=== PATIENT | female | born 1990 | race Asian ===

== ENCOUNTER 2020-10-01 04:29 | Inpatient (IN) ==
[2020-10-01] MEDS ORDERED: LACTATED RINGER'S 1,000 ML IV PRN (05:04)
[2020-10-01] MEDS ORDERED: PENICILLIN G POTASSIUM 3 MU in DEXTROSE 5% 100 ML IV PRN (05:04)
[2020-10-01] MEDS ORDERED: OXYTOCIN 30 UNITS/500 ML BAG IV PRN ×2 (05:04→08:55)
[2020-10-01] MEDS ORDERED: PENICILLIN G POTASSIUM 6 MU in DEXTROSE 5% 250 ML IV STA (05:04)
--- NOTE | 2020-10-01 05:09 | History & Physical Report ---
Date of Service October 01, 2020 Assessment & Plan (1) Supervision of normal first : Plan: Admit to L&D for labor. EFM/[place]. Pt would like to do this as naturally as possible, hoping to avoid epidural. Pen G for GBS+ EDIT: Has changed her mind. After SROM, patient is requesting epidural. History of Present Illness Chief Complaint: contractions Primary Care Provider: NO PCP 30yo @ 39 05/16, presents with regular ctx. No vaginal bleeding, leaking fluid. + movment. GBS+ Allergies Allergy/AdvReac Type Severity Reaction Status Date / Time No Known Allergies Allergy Verified 09/24/20 14:06 Home Medications Medication Instructions Recorded Confirmed Type prenat.vits,rhonda,[id number] 1 tab PO DAILY 08/10/20 10/01/20 History calcium carbonate [Calcium 500] 1 tab PO DAILY 08/13/20 09/24/20 History Patient History Medical History Varicella vaccination Surgical History No history of previous surgery Family History (Updated 08/13/20 @ 09:56 by Franca Sharp) Grandfather (Maternal) Colorectal cancer Denies family history of Ovarian cancer Breast cancer Social History (Updated 08/13/20 @ 09:58 by Franca Sharp) Smoking Status: Never smoker Hx Alcohol Use: No Hx Substance Use: No Preferred Language: Indonesian Communication Ability: Effective Beliefs That Will Affect Care: None marital status: marital status details: Ishan Ulloa (29) [phone] Current Living Situation: Spouse Current Living Situation Comment: mom and sister also lives with her current occupational status: employed current occupation: self employed-PT Feels Safe at Home: Yes Safety Concerns: Feels Safe At This Time Assistive Devices: Glasses Review of Systems All systems reviewed & are unremarkable except as noted in HPI & below Physical Exam Constitutional: WD/WN, vitals as above Respiratory: normal respiratory effort, lungs clear to auscultation no respiratory distress Cardiovascular: Rate/Rhythm: regular rate and regular rhythm Gastrointestinal (Abdomen): Inspection/Auscultation: abdomen normal to inspection Percussion/Palpation: abdomen soft; abdomen nontender Gravid. No s/s chorio or abruption. Skin: no rashes, warm and dry Psychiatric: A+Ox3, euthymic affect Results & Data ([facility]) Vital Signs (Past 12 Hours) Vital Signs Temp Pulse Resp BP 10/01/20 04:41 66 114/75 10/01/20 04:40 36.5 C 16 Monitoring External Monitor Cat 1 Tocodynamometer Q 3-4 Coding Level of Care Code None Diagnoses Supervision of normal first Z34.00
[2020-10-01 06:04] LABS: Hematocrit (blood only) 35.2 % (37-47); Hemoglobin 11.5 g/dL (12.0-16.0); Mean Corpuscular Hemoglobin 27.1 pg (25-34); Mean Corpuscular Volume 82.8 fL (80-100); Mean Platelet Volume 10.6 fL (7.4-10.4); Platelet Count 134 K/uL (130-400); RDW Coefficient of Variation 14.1 % (11.5-14.5); RDW Standard Deviation 42.4 fL (36.4-46.3); Red Blood Count 4.25 M/uL (4.2-5.4); White Blood Count 9.05 K/uL (4.8-10.8)
[2020-10-01 06:14] LABS: Mean Corpuscular Hgb Conc 32.7 g/dL (32-36)
[2020-10-01] MEDS ORDERED: ePHEDrine sulfate 50 MG/ML AMP ONE (07:40)
[2020-10-01] MEDS ORDERED: SODIUM CHLORIDE 0.9% INJ 10 ML VIAL ONE (07:40)
[2020-10-01] MEDS ORDERED: BUPIVACAINE 0.25% 30 ML VIAL ONE (07:40)
[2020-10-01] MEDS ORDERED: fentaNYL 2MCG/ML ROPIVACAINE 1.25MG/ML 100 ML BAG EPI ONE (07:41)
[2020-10-01] MEDS ORDERED: fentaNYL citrate 100 MCG/2 ML VIAL ONE (07:41)
--- NOTE | 2020-10-01 08:01 | Anesthesiology Consultation ---
Date of Service October 01, 2020 Assessment & Plan (1) Encounter for pre-operative examination: Chart Review Chart Review: Acceptable Risk for Surgery History Height/Weight Height: 5 ft 3 in Weight: 66.224 kg Allergies Allergy/AdvReac Type Severity Reaction Status Date / Time No Known Allergies Allergy Verified 09/24/20 14:06 Medications Home Medications Medication Instructions Recorded Confirmed Last Taken prenat.vits,rhonda,oav-ysbr-dehgs 1 tab PO DAILY 08/10/20 10/01/20 09/30/20 calcium carbonate [Calcium 500] 1 tab PO DAILY 08/13/20 09/24/20 09/30/20 Active Medications Generic Name Dose Route Start Last Admin Trade Name Freq PRN Reason Stop Dose Admin Lactated Ringer's 1,000 mls @ 125 mls/hr 10/01/20 05:04 10/01/20 07:47 Lr IV 10/03/20 05:03 999 mls/hr .Q8H PRN Infusion L&D Protocol Protocol Past Medical History Medical History Varicella vaccination Past Family History Family History Grandfather (Maternal) Colorectal cancer Denies family history of Ovarian cancer Breast cancer Past Surgical History Surgical History No history of previous surgery Social History Smoking Status: Never smoker Hx Alcohol Use: No Hx Substance Use: No Physical Exam Vital Signs Last Vital Signs Temp 36.5 C 10/01/20 04:40 Pulse 64 10/01/20 07:56 Resp 16 10/01/20 04:40 BP 122/76 10/01/20 07:52 Pulse Ox 98 10/01/20 07:56 Testing Laboratory Results 10/01/20 05:58
--- NOTE | 2020-10-01 08:05 | Labor Progress Brief Note ---
Date of Service October 01, 2020 Subjective FHT Cat 1 [place] Q 2-3 SVE complete/+1 station Feeling urge to push. Wants to push rather than wait for epidural. Assessment & Plan Admission and Anticipated Discharge Date Admission Date: October 01, 2020 Results & Data ([facility]) Vital Signs (Past 12 Hours) Vital Signs Temp Pulse Resp BP Pulse Ox 10/01/20 08:01 72 98 10/01/20 07:56 64 98 10/01/20 07:52 65 122/76 10/01/20 07:51 65 98 10/01/20 04:41 66 114/75 10/01/20 04:40 36.5 C 16 Coding Level of Care Code None
[2020-10-01] MEDS ORDERED: LIDOCAINE 1% LOCAL 20 ML VIAL ONE ×2 (08:09→08:18)
--- NOTE | 2020-10-01 08:40 | Delivery Summary ---
Vaginal Delivery Summary Date of Service October 01, 2020 Vaginal Delivery Summary and 1st Degree LAC Vaginal Delivery Summary: Pre-delivery diagnoses: 30yo @ 39 4/7, spontaneous labor, GBS+ Post-delivery diagnoses: same Procedure: spontaneous vaginal delivery, repair of 1st degree perineal laceration Surgeon: Sarah Li DO Complications: none Findings: Viable male . Apgars: 8/9. Weight pending, please see nursery records. Estimated blood loss: 300ml Description of delivery: The patient presented in spontaneous labor, spontaneously ruptured membranes, and progressed to complete without anesthesia. She then began to push. She spontaneously vaginally delivered a viable from the cephalic presentation. The head delivered in KVNG position. The anterior shoulder delivered, followed by the posterior shoulder, followed by the body. The baby was placed on mother's abdomen and a spontaneous cry was heard. Delayed cord clamping was employed, and the cord was doubly clamped and cut. Cord blood was obtained. The placenta was delivered spontaneously intact with a 3-vessel cord. The uterus and vagina were swept of clots and debris. IV pitocin was given. The uterus became firm. The cervix, vagina, and perineum were inspected and a first degree perineal and a small periclitoral laceration were noted. Lidocaine for local anesthetic. The periclitoral laceration became hemostatic with direct pressure and did not require suture. The 1st degree perineal lac was reapproximated in standard fashion with 3-0 vicryl. Excellent hemostasis was observed. The mother and baby are recovering in stable and good condition in the room. Sponge, needle and instrument counts were correct x 2. Sarah Li DO [facility] Vaginal Delivery Charge Vaginal Delivery Codes: 39608 global code for the antepartum, delivery, and post- Delivery Type Details: and 1st Degree LAC
[2020-10-01] MEDS ORDERED: IBUPROFEN 600 MG TAB PO PRN (08:55)
[2020-10-01] MEDS ORDERED: BENZOCAINE 20% AER SPR 82.5 GM CAN EXT PRN (08:55)
[2020-10-01] MEDS ORDERED: oxyCODONE/ACETAMINOPHEN 5mg/325mg TAB PO PRN (08:55)
[2020-10-01] MEDS ORDERED: SUPERCREAM 0.870% 15 GM JAR EXT PRN (08:55)
[2020-10-01] MEDS ORDERED: bisacodyL 10 MG SUPP PR PRN (08:55)
[2020-10-01] MEDS ORDERED: ACETAMINOPHEN 325 MG TAB PO PRN (08:55)
[2020-10-01] MEDS ORDERED: DIPHTHERIA/TETANUS/PERTUSSIS 0.5 ML SYR/VIAL IM ONE (08:55)
[2020-10-01] MEDS ORDERED: HYDROCORTISONE ACETATE 25 MG SUPP PR PRN (08:55)
[2020-10-01] MEDS: DOCUSATE SODIUM 100 MG CAP PO SCH (19:32)
--- NOTE | 2020-10-02 05:36 | Obstetrical Progress Note ---
Date of Service <Joaquim Otero - Last Filed: 10/02/20 07:00> October 02, 2020 Assessment & Plan <Joaquim Otero - Last Filed: 10/02/20 07:00> (1) Encounter for care and examination after delivery: PPD1 - A+, GBS+, RI - Vitals WNL - Encouraged . - Discussed discharge with patient. Continue to monitor patient until ready for discharge. <Courtney Gore MD - Last Filed: 10/02/20 07:48> (1) Encounter for care and examination after delivery: Subjective <Joaquim Otero - Last Filed: 10/02/20 07:00> Ambulation: ambulating normally Voiding: no voiding problems Passing Gas:: Yes Diet Tolerance:: regular diet Lochia:: Moderate Feeding Type:: breast feeding Current Pain Level(1-10): 2 (Mostly cramping. ) Review of Systems Denies fever, chills, sweats Denies shortness of breath, difficulty breathing, chest pain, palpitations, chest pressure. Denies breast pain. Denies dysuria. Denies headache or changes in vision Physical Exam <Joaquim Otero - Last Filed: 10/02/20 07:00> General: Alert, oriented. No acute distress. Cardiac: Regular rate and rhythm, no murmurs/rubs/gallops. Respiratory: Clear to auscultation bilaterally a/p, no wheezes/rales/rhonchi. No increased work of breathing. Symmetrical chest rise. No respiratory distress. Abdomen: Soft, nontender, nondistended. Bowel sounds present. Uterus: Uterine fundus firm, palpable at umbilicus. Lower Extremities: No lower extremity edema or swelling. No deep calf pain. Chrissy's negative bilaterally Results & Data ([facility]) <Joauqim Summerskatieron - Last Filed: 10/02/20 07:00> Vital Signs (Past 12 Hours) Vital Signs Temp Pulse Resp BP Pulse Ox 10/02/20 04:20 36.6 C 72 16 103/68 98 10/01/20 23:00 36.4 C L 69 16 97/60 L 99 10/01/20 19:24 36.7 C 84 18 102/67 97 <Courtney Gore MD - Last Filed: 10/02/20 07:48> Co-Signing Physician Notes Resident Physician Supervision Note: I interviewed and examined the patient. Discussed with Dr. Otero and agree with findings and plan as documented in the note. Any exceptions or clarifications are listed here: PP1 s/p , doing well. VSS, exam benign and wnl. Continue routine pp care, plan for d/c tomorrow Documented By: Courtney Gore MD Resident Activity Tracking <Joaquim Otero DO - Last Filed: 10/02/20 07:00> Resident Involvement: Resident Care Provided Care Provided: OB Delivery
[2020-10-02] MEDS: PRENATAL VITAMIN 1 TAB PO SCH (08:03)
[2020-10-02] MEDS: DOCUSATE SODIUM 100 MG CAP PO SCH ×2 (08:03→21:14)
[2020-10-02 08:44] LABS: Hematocrit (blood only) 32.4 % (37-47); Hemoglobin 10.3 g/dL (12.0-16.0)
[2020-10-02] MEDS ORDERED: bisacodyL 5 MG TABEC PO SCH (20:00)
--- NOTE | 2020-10-03 06:56 | Obstetrical Progress Note ---
Date of Service <Joaquim Otero DO - Last Filed: 10/03/20 08:03> October 03, 2020 Assessment & Plan <Joaquim Otero DO - Last Filed: 10/03/20 08:03> (1) Encounter for care and examination after delivery: s/p vaginal delivery PPD1 - A+, GBS+, RI - Vitals WNL - Encouraged . - Discussed discharge with patient. Patient will be discharged when baby cleared by pediatrics and she is ready. <Musa Flores MD - Last Filed: 10/03/20 08:10> (1) Encounter for care and examination after delivery: Subjective <Joaquim Otero - Last Filed: 10/03/20 08:03> Ambulation: ambulating normally Voiding: no voiding problems Passing Gas:: Yes Diet Tolerance:: regular diet Lochia:: Small Feeding Type:: breast feeding Current Pain Level(1-10): 0 Review of Systems Denies fever, chills, sweats Denies shortness of breath, difficulty breathing, chest pain, palpitations, chest pressure. Denies breast pain. Denies dysuria. Denies headache or changes in vision Physical Exam <Joaquim Otero DO - Last Filed: 10/03/20 08:03> General: Alert, oriented. No acute distress. Cardiac: Regular rate and rhythm, no murmurs/rubs/gallops. Respiratory: Clear to auscultation bilaterally a/p, no wheezes/rales/rhonchi. No increased work of breathing. Symmetrical chest rise. No respiratory distress. Abdomen: Soft, nontender, nondistended. Bowel sounds present. Uterus: Uterine fundus firm, palpable at umbilicus. Lower Extremities: No lower extremity edema or swelling. No deep calf pain. Chrissy's negative bilaterally Results & Data ([facility]) <Joaquim Otero - Last Filed: 10/03/20 08:03> Vital Signs (Past 12 Hours) Vital Signs Temp Pulse Resp BP 10/02/20 23:15 36.7 C 70 18 108/66 10/02/20 19:25 36.8 C 62 18 106/68 <Musa Flores MD - Last Filed: 10/03/20 08:10> Co-Signing Physician Notes Patient seen and evaluated and agree with the above findings and plan Resident Activity Tracking <Joaquim Otero, DO - Last Filed: 10/03/20 08:03> Resident Involvement: Resident Care Provided Care Provided: OB Delivery
[2020-10-03] MEDS: PRENATAL VITAMIN 1 TAB PO SCH (08:01)
[2020-10-03] MEDS: DOCUSATE SODIUM 100 MG CAP PO SCH (08:01)
== END 2020-10-03 10:48 | disposition home or self-care (01) | DRG 807 ==
LOC: OPB 04:29 → 4S1 04:33 → 4S2 10:30
DX: Z37.0 Single live birth; Z3A.39 39 weeks gestation of pregnancy; Z22.330 Carrier of Group B streptococcus; O70.0 First degree perineal laceration during delivery